=== PATIENT | male | born 1935 | race Caucasian/White ===

== ENCOUNTER 2016-09-09 12:23 | Outpatient (CLI) | payer OTHER ==
--- NOTE | 2016-09-09 13:41 | DIAGNOSTIC IMAGING REPORT ---
PROCEDURE: MR BRAIN WITHOUT CONTRAST INDICATION: MEMORY LOSS TECHNIQUE: Multiplanar multisequence MRI imaging of the brain without contrast. COMPARISON: None. FINDINGS: Marked atrophy. Scattered focal areas of increased signal in the periventricular white matter. No restricted diffusion to suggest acute ischemia. No evidence of acute or chronic intraparenchymal or extra-axial hemorrhage. No mass, mass effect, or midline shift. Normal signal in the visible bones. There are mucous retention cysts in both maxillary sinuses. Visible extracranial soft tissues including the orbits are normal. IMPRESSION: 1. Atrophy 2. minimal periventricular white matter ischemic disease
== END 2016-09-09 23:00 ==
LOC: MRI SRH 12:23
DX: G31.9 Degenerative disease of nervous system, unspecified (principal); R90.82 White matter disease, unspecified